=== PATIENT | male | born 1955 | race African-American/Black ===

== ENCOUNTER 2016-09-26 07:40 | Day surgery (SDC) | payer OTHER ==
[2016-09-26 08:33] VITALS: BMI 38.2
[2016-09-26] MEDS ORDERED: PROPOFOL 20 ML ONE ×2 (09:29)
[2016-09-26 10:23] VITALS: TEMP 97.9
[2016-09-26 14:21] VITALS: BP 121/77; PULSE 67
--- NOTE | 2016-09-27 12:07 | PATH ---
Surgical Pathology Report Patient Name: NIKHIL URIBE [facility]. Rec. #: [id number] /Age/Gender: 1955 (Age: 60) / M Account: [id number] Location: U-ENDOSCOPY Taken: 09/26/2016 Received: 09/26/2016 Reported: 09/27/2016 Physicians: Nikhil Donnelly M.D. Specimen(s) Received A: DESCENDING COLON POLYPS (BX & SNARE) B: BX SIGMOID POLYPS Clinical History Screening Polyps, diverticulosis, grade 2 hemorrhoids Final Diagnosis A. COLON, DESCENDING, BIOPSY AND SNARE POLYPECTOMY: TUBULAR ADENOMA. B. COLON, SIGMOID, BIOPSY: COLONIC MUCOSA WITH NO PATHOLOGIC CHANGES. Comment: Recommend correlation with clinical findings and follow up as clinically indicated. Electronically Signed Dony Berumen M.D. Gross Description A. Received in formalin, labeled "polyps descending colon" are 2 urbano, irregular portions of soft tissue averaging 0.2 cm. in greatest dimension. The specimens are submitted in toto in one cassette. B. Received in formalin, labeled "biopsy sigmoid polyps" are 2 urbano, irregular portions of soft tissue ranging from 0.3-0.4 cm. in greatest dimension. The specimens are submitted in toto in one cassette. 09/26/201609/26/2016
== END 2016-09-26 11:45 | disposition home or self-care (01) ==
LOC: JASU-ENDO 07:40
PROVIDERS: ATTEND Internal Medicine Gastroenterology
PROC: 0DBM8ZX Excision of Descending Colon, Via Natural or Artificial Opening Endoscopic, Diagnostic (ICD-10-PCS; 2016-09-26)
PROC: 0DBN8ZX Excision of Sigmoid Colon, Via Natural or Artificial Opening Endoscopic, Diagnostic (ICD-10-PCS; principal; 2016-09-26 09:00)
DX: Z12.11 Encounter for screening for malignant neoplasm of colon (principal); D12.4 Benign neoplasm of descending colon; D12.5 Benign neoplasm of sigmoid colon; K64.8 Other hemorrhoids; K63.89 Other specified diseases of intestine
CPT/HCPCS: 88305-TC

== ENCOUNTER 2020-06-17 21:03 | Inpatient (IN) | payer SELFPAY ==
[2020-06-17 21:24] VITALS: BMI 33.2
[2020-06-17] MEDS ORDERED: METOCLOPRAMIDE HCL INJECTION 10 MG/2 ML VIAL IVPB ONE (22:57)
[2020-06-17 23:04] LABS: CHLORIDE 98 mmol/L (98-107); POTASSIUM 4.1 mmol/L (3.5-5.1); SODIUM 133 mmol/L (136-145)
[2020-06-17 23:07] LABS: ALBUMIN 2.7 g/dl (3.4-5.0); ANION GAP 12 MMOL/L (8-16); CALCIUM 8.4 mg/dL (8.5-10.1); CO2 23 mmol/L (21-32); GLUCOSE,RANDOM 200 mg/dL (74-106); MAGNESIUM 3.1 mg/dL (1.8-2.4)
[2020-06-17 23:10] LABS: CREATININE 1.4 mg/dL (0.55-1.3); SGOT/AST 67 U/L (15-37); SGPT/ALT 32 U/L (13-61)
[2020-06-17 23:12] LABS: BILIRUBIN,TOTAL 1.8 mg/dL (0.2-1); TOT PROT 7.7 g/dl (6.4-8.2)
[2020-06-17] MEDS ORDERED: METOCLOPRAMIDE HCL INJECTION 10 MG/2 ML VIAL ONE (23:12)
[2020-06-17 23:13] LABS: ALK PHOS 100 U/L (45-117)
[2020-06-18 00:43] LABS: BASO % 0.3 % (0-2.0); EOS % 0.7 % (0-4.5); HEMATOCRIT 32.7 % (35.4-49); HEMOGLOBIN 11.3 GM/dL (11.7-16.9); LYMPH % 11.7 % (8-40); MCH 34.3 pg (25.7-33.7); MCHC 34.7 g/dl (32.0-35.9); MEAN PLT VOLUME 8.7 fl (7.5-11.1); MONO % 9.6 % (3.8-10.2); NEUT % 77.7 % (42.8-82.8); PLATELET COUNT 310 K/MM3 (134-434); RDW 14.1 % (11.9-15.9); WHITE BLOOD COUNT 6.8 K/mm3 (4.0-10.0)
[2020-06-18] MEDS ORDERED: SODIUM CHLORIDE 0.9% 500 ML INFUS.BAG IV ONE (01:13)
[2020-06-18 01:18] LABS: BILIRUBIN,DIRECT 0.5 mg/dL (0.0-0.2)
[2020-06-18 01:23] LABS: LDH 524 U/L (87-246)
[2020-06-18 01:46] LABS: INR 1.18 (0.83-1.09); PROTHROMBIN TIME (PATIENT) 14.5 SEC (9.7-13.0)
[2020-06-18 01:49] LABS: ACTIVATED PTT 26.2 SECONDS (25.2-36.5)
[2020-06-18 02:41] LABS: CHLORIDE 98 mmol/L (98-107); POTASSIUM 3.1 mmol/L (3.5-5.1); SODIUM 134 mmol/L (136-145)
[2020-06-18 02:43] LABS: CALCIUM 8.1 mg/dL (8.5-10.1)
[2020-06-18 02:44] LABS: ALBUMIN 2.5 g/dl (3.4-5.0); GLUCOSE,RANDOM 124 mg/dL (74-106); MAGNESIUM 3.1 mg/dL (1.8-2.4)
[2020-06-18 02:47] LABS: CREATININE 1.2 mg/dL (0.55-1.3); PHOSPHOROUS 3.6 mg/dL (2.5-4.9); SGOT/AST 37 U/L (15-37); SGPT/ALT 26 U/L (13-61)
[2020-06-18 02:48] LABS: BILIRUBIN,TOTAL 1.4 mg/dL (0.2-1); TOT PROT 6.8 g/dl (6.4-8.2)
[2020-06-18 02:50] LABS: ALK PHOS 90 U/L (45-117)
[2020-06-18 03:11] LABS: ANION GAP 10 MMOL/L (8-16); CO2 26 mmol/L (21-32)
[2020-06-18] MEDS ORDERED: KCL 10 MEQ IVPB 10 MEQ/100 ML INFUS.BAG IVPB ONE ×4 (03:35→09:28)
[2020-06-18] MEDS: KCL 10 MEQ IVPB 10 MEQ/100 ML INFUS.BAG IVPB SCH ×5 (03:40→10:47)
[2020-06-18] MEDS ORDERED: METOCLOPRAMIDE HCL INJECTION 10 MG/2 ML VIAL IVPB ONE (03:45)
[2020-06-18] MEDS ORDERED: METOCLOPRAMIDE HCL INJECTION 10 MG/2 ML VIAL ONE (03:47)
[2020-06-18] MEDS ORDERED: DEXAMETHASONE SOD PHOSPHATE 4 MG/1 ML VIAL IVPUSH ONE (04:23)
[2020-06-18] MEDS ORDERED: LACTATED RINGERS SOLUTION 1000 ML INFUS.BAG IV ONE (04:45)
[2020-06-18] MEDS ORDERED: DEXAMETHASONE SOD PHOSPHATE 10 MG/1 ML VIAL ONE ×2 (04:50→09:27)
[2020-06-18] MEDS ORDERED: GABAPENTIN 100 MG CAPSULE ONE (06:26)
[2020-06-18] MEDS: GABAPENTIN 100 MG CAPSULE PO SCH ×3 (06:26→21:25)
[2020-06-18] MEDS ORDERED: ASCORBIC ACID 500 MG TABLET (FP) ONE (09:27)
[2020-06-18] MEDS ORDERED: ZINC SULFATE 220 MG CAPSULE (FP) ONE (09:27)
[2020-06-18] MEDS ORDERED: ENOXAPARIN NA (PORCINE) 40 MG/0.4 ML DISP.SYRIN SQ ONE (09:28)
[2020-06-18] MEDS ORDERED: CHOLECALCIFEROL (VIT D3) 1,000 UNIT (25 MCG) TABLET ONE (09:28)
[2020-06-18] MEDS: ENOXAPARIN NA (PORCINE) 40 MG/0.4 ML DISP.SYRIN SQ SCH (09:35)
[2020-06-18] MEDS: DEXAMETHASONE SOD PHOSPHATE 4 MG/1 ML VIAL IVPUSH SCH (09:35)
[2020-06-18] MEDS: ASCORBIC ACID 500 MG TABLET (FP) PO SCH ×2 (09:35→21:23)
[2020-06-18] MEDS ORDERED: ZINC SULFATE 220 MG CAPSULE (FP) PO SCH (10:00)
[2020-06-18] MEDS ORDERED: CHOLECALCIFEROL (VIT D3) 1,000 UNIT (25 MCG) TABLET PO SCH (10:00)
[2020-06-18] MEDS ORDERED: FAMOTIDINE 20 MG/50 ML IVPB 20 MG/50 ML MG IVPB ONE (10:36)
[2020-06-18] MEDS: FAMOTIDINE 20 MG/50 ML IVPB 20 MG/50 ML MG IVPB SCH ×2 (10:47→21:23)
[2020-06-18] MEDS ORDERED: SODIUM CHLORIDE 1,000 ML IV SCH (13:30)
[2020-06-18] MEDS ORDERED: ACETAMINOPHEN 325 MG TABLET (FP) PO PRN (15:23)
[2020-06-18 17:02] LABS: BASO % 0.2 % (0-2.0); HEMATOCRIT 30.2 % (35.4-49); HEMOGLOBIN 10.4 GM/dL (11.7-16.9); LYMPH % 9.3 % (8-40); MCHC 34.5 g/dl (32.0-35.9); MEAN CELL VOLUME 98.7 fl (80-96); MEAN PLT VOLUME 8.4 fl (7.5-11.1); MONO % 2.7 % (3.8-10.2); NEUT % 87.8 % (42.8-82.8); PLATELET COUNT 284 K/MM3 (134-434); RBC 3.06 M/mm3 (4.00-5.60); RDW 14.2 % (11.9-15.9)
[2020-06-18 17:28] LABS: POTASSIUM 4.1 mmol/L (3.5-5.1)
[2020-06-18 17:31] LABS: ALBUMIN 2.4 g/dl (3.4-5.0); MAGNESIUM 2.9 mg/dL (1.8-2.4)
[2020-06-18 17:34] LABS: CREATININE 1.1 mg/dL (0.55-1.3)
[2020-06-18 17:36] LABS: TOT PROT 6.6 g/dl (6.4-8.2)
[2020-06-18] MEDS ORDERED: REMDESIVIR 200 MG in SODIUM CHLORIDE 210 ML IVPB ONE (18:00)
[2020-06-18] MEDS ORDERED: PANTOPRAZOLE 20 MG TABLET PO SCH (18:00)
[2020-06-18] MEDS ORDERED: PT OWN MED DRAWER 7, Y5N ONE (22:13)
[2020-06-19 05:47] VITALS: BP 145/90; PULSE 103; TEMP 98.2
[2020-06-19] MEDS: GABAPENTIN 100 MG CAPSULE PO SCH ×2 (06:48→14:37)
[2020-06-19 09:58] LABS: BASO % 0.3 % (0-2.0); HEMATOCRIT 27.1 % (35.4-49); HEMOGLOBIN 9.6 GM/dL (11.7-16.9); LYMPH % 9.9 % (8-40); MCH 34.8 pg (25.7-33.7); MCHC 35.2 g/dl (32.0-35.9); MEAN CELL VOLUME 98.7 fl (80-96); MEAN PLT VOLUME 8.6 fl (7.5-11.1); MONO % 8.3 % (3.8-10.2); NEUT % 81.5 % (42.8-82.8); PLATELET COUNT 288 K/MM3 (134-434); RBC 2.75 M/mm3 (4.00-5.60); RDW 14.3 % (11.9-15.9); WHITE BLOOD COUNT 9.9 K/mm3 (4.0-10.0)
[2020-06-19 10:19] LABS: POTASSIUM 3.7 mmol/L (3.5-5.1)
[2020-06-19 10:22] LABS: ALBUMIN 2.4 g/dl (3.4-5.0); BLOOD UREA NITROGEN 20.2 mg/dL (7-18); CALCIUM 8.1 mg/dL (8.5-10.1); MAGNESIUM 2.8 mg/dL (1.8-2.4)
[2020-06-19 10:25] LABS: CREATININE 1.1 mg/dL (0.55-1.3)
[2020-06-19 10:26] LABS: PHOSPHOROUS 2.4 mg/dL (2.5-4.9)
[2020-06-19 10:27] LABS: BILIRUBIN,TOTAL 1.4 mg/dL (0.2-1); TOT PROT 6.4 g/dl (6.4-8.2)
[2020-06-19] MEDS: FAMOTIDINE 20 MG/50 ML IVPB 20 MG/50 ML MG IVPB SCH (10:59)
[2020-06-19] MEDS: DEXAMETHASONE SOD PHOSPHATE 4 MG/1 ML VIAL IVPUSH SCH (10:59)
[2020-06-19] MEDS: ENOXAPARIN NA (PORCINE) 40 MG/0.4 ML DISP.SYRIN SQ SCH (10:59)
[2020-06-19] MEDS ORDERED: REMDESIVIR 100 MG in SODIUM CHLORIDE 230 ML IVPB SCH (18:00)
[2020-06-19] MEDS ORDERED: ENOXAPARIN NA (PORCINE) 100 MG/1 ML DISP.SYRIN SQ SCH (22:00)
== END 2020-06-19 18:23 | disposition home or self-care (01) | DRG 133 ==
LOC: JER 21:03 → JERBED 06-18 05:46 → J6S 06-18 13:07 → J7W 06-19 10:18
PROVIDERS: ADMIT Hospitalist; ATTEND Student in an Organized Health Care Education/Training Program
DX: J96.01 Acute respiratory failure with hypoxia (principal); N17.9 Acute kidney failure, unspecified; E87.1 Hypo-osmolality and hyponatremia; E83.41 Hypermagnesemia; R06.6 Hiccough; R00.0 Tachycardia, unspecified; E87.6 Hypokalemia; I10 Essential (primary) hypertension; Z20.822 Contact with and (suspected) exposure to COVID-19
CPT/HCPCS: 36415; 71046-TC-FY; 71275-TC; 80053; 82248; 82550; 82553; 82728; 83615; 83735; 84100; 84484; 85025; 85379; 85610; 85730; 86140; 86769; 93005; 93010; 99285-25; C9399; C9803; Q9967; U0003